=== PATIENT | female | born 1945 | race Two or more races ===

== ENCOUNTER 2020-06-24 07:20 | Emergency (ER) | payer OTHER ==
[~2020-06-24] VITALS: Ht 154.9 cm; Wt 68.0 kg
[2020-06-24] MEDS ORDERED: LANTUS SOL100 UNIT/1 SQ (07:31)
[2020-06-24] MEDS ORDERED: CARAFATE1 GM PO (22:02)
[2020-06-24] MEDS ORDERED: PEPCID AC20 MG PO (22:02)
[2020-06-24] MEDS ORDERED: ZOFRAN4 MG PO (22:03)
== END 2020-06-24 21:54 | disposition home or self-care (01) ==
LOC: ER 07:20
DX: K29.60 Other gastritis without bleeding (principal); K29.80 Duodenitis without bleeding; Z03.818 Encounter for observation for suspected exposure to other biological agents ruled out

== ENCOUNTER 2024-04-05 22:27 | Emergency (ER) | payer OTHER ==
[~2024-04-05] VITALS: Ht 162.6 cm; Wt 90.7 kg
[~2024-04-05 22:27] MED LIST: CARAFATE1 GM PO; LANTUS SOL100 UNIT/1 SQ; PEPCID AC20 MG PO; ZOFRAN4 MG PO
[2024-04-05] MEDS ORDERED: DEXTROSE 50 % IN WATER 0.5 G/ML DISP.SYRIN IV PRN (22:45)
[2024-04-05] MEDS ORDERED: DEXTROSE 50 % IN WATER 0.5 G/ML VIAL IV ONE (22:45)
[2024-04-05] MEDS ORDERED: DEXTROSE 5 % IN WATER 1,000 ML IV SCH (22:45)
[2024-04-05] MEDS ORDERED: INSULIN LISPRO 1,000 UNIT/10 ML UNITS SUBCUTANEO PRN (22:45)
[2024-04-05 23:19] LABS: MEAN CELL VOLUME 90.3 fL (80.00-100.00); MEAN CORPUSCULAR HEMOGLOBIN 29.5 pg (27.00-32.0); MEAN CORPUSCULAR HGB CONC 32.7 g/dl (32.0-36.0); PLATELET COUNT 259 K/uL (150-450); RED BLOOD COUNT 3.32 M/uL (4.00-6.00); RED CELL DISTRIBUTION WIDTH 13.6 % (11.5-14.5)
[2024-04-05 23:23] LABS: HEMOGLOBIN 9.8 g/dL (12.0-15.00)
[2024-04-06 00:40] LABS: PARTIAL THROMBOPLASTIN TIME 29.2 SECONDS (22.0-34.0); PROTHROMBIN TIME 10.9 SECONDS (9.0-11.5)
[2024-04-06 00:41] LABS: BILIRUBIN TOTAL 1.15 mg/dL (0.3-1.2); CALCIUM 9.1 mg/dL (8.5-10.1); CREATININE SERUM 1.13 mg/dL (0.55-1.02); GFR 46.33; GLOBULINA 4.4 G/DL (2.4-3.5); POTASSIUM 4.48 mEq/L (3.5-5.1); TOTAL PROTEIN 7.4 gm/dL (6.4-8.2)
[2024-04-06 01:55] LABS: PH,URINE 5.5 (5.0-8.0); URINE APPEARANCE Clear; URINE BILIRRUBIN Negative (NEGATIVE); URINE BLOOD Negative; URINE COLOR Dark Yellow; URINE KETONE 15 (NEGATIVE); URINE LEUKOCYTE Trace; URINE NITRATE Negative
[2024-04-06 01:58] LABS: URINE BACTERIA 1528.2 uL (0.0-1933); URINE EPITHELIAL CELLS 26.5 uL (0.0-38.8); URINE RBC 24.1 uL (0.0-20.8); URINE WBC 23.6 uL (0.0-23.2)
[2024-04-06 02:29] LABS: URINE CAST 1.22 uL (0.0-1.40); URINE GLUCOSE 100 MG/DL (NEGATIVE); URINE PROTEIN 300 (NEGATIVE)
== END 2024-04-06 06:20 ==
LOC: ER 22:27
PROVIDERS: General Practice
DX: E16.2 Hypoglycemia, unspecified (principal); R53.1 Weakness; R06.02 Shortness of breath; Z20.822 Contact with and (suspected) exposure to COVID-19; E11.9 Type 2 diabetes mellitus without complications; Z79.4 Long term (current) use of insulin
CPT/HCPCS: 36415; 71045; 93005; 96365; 96366; 99283; J3490 ×3

== ENCOUNTER 2024-11-05 03:00 | Emergency (ER) | payer OTHER ==
[~2024-11-05] VITALS: Ht 157.5 cm; Wt 72.6 kg
[2024-11-05] MEDS ORDERED: FAMOTIDINE/PF 20 MG in 0.9 % SODIUM CHLORIDE 8 ML IV PUSH STA (03:12)
[2024-11-05] MEDS ORDERED: FAMOTIDINE/PF 20 MG/2 ML VIAL ONE (03:13)
[2024-11-05] MEDS ORDERED: METOCLOPRAMIDE HCL 5 MG/ML VIAL ONE (03:13)
[2024-11-05] MEDS ORDERED: 0.9 % SODIUM CHLORIDE 1,000 ML IV SCH (03:15)
[2024-11-05] MEDS ORDERED: METOCLOPRAMIDE HCL 10 MG in DEXTROSE 5 % IN WATER 50 ML IV ONE (03:15)
[2024-11-05] MEDS ORDERED: NEURONTIN300 MG PO (03:18)
[2024-11-05] MEDS ORDERED: LIPITOR40 M1 PO (03:18)
[2024-11-05] MEDS ORDERED: LOSARTAN POTASS50 MG PO (03:18)
[2024-11-05] MEDS ORDERED: PEPCID AC20 MG PO (03:18)
[2024-11-05] MEDS ORDERED: NIFE60TA3 (03:19)
[2024-11-05 04:26] LABS: ALBUMIN 3.4 gm/dL (3.4-5.0); BILIRUBIN TOTAL 0.65 mg/dL (0.3-1.2); BILIRUBIN,CONJUGATED 0.2 mg/dL (0.0-0.2); BILIRUBIN,UNCONJUGATED 0.45 mg/dL (0.0-0.6); CALCIUM 9.4 mg/dL (8.5-10.1); CREATININE SERUM 2.14 mg/dL (0.55-1.02); GFR 22.17; GLOBULINA 4.2 G/DL (2.4-3.5); POTASSIUM 4.21 mEq/L (3.5-5.1); TOTAL PROTEIN 7.6 gm/dL (6.4-8.2)
[2024-11-05 06:21] LABS: HEMATOCRIT 40.7 % (36.0-45.00); HEMOGLOBIN 13.4 g/dL (12.0-15.00); PLATELET COUNT 270 K/uL (150-450); RED BLOOD COUNT 4.62 M/uL (4.00-6.00); RED CELL DISTRIBUTION WIDTH 12.9 % (11.5-14.5)
[2024-11-05 08:32] LABS: CALCIUM 8.7 mg/dL (8.5-10.1); CREATININE SERUM 1.91 mg/dL (0.55-1.02); GFR 25.28; POTASSIUM 4.37 mEq/L (3.5-5.1)
== END 2024-11-05 13:46 | disposition home or self-care (01) ==
LOC: ER 03:00
PROVIDERS: General Practice
DX: R11.2 Nausea with vomiting, unspecified (principal); K52.89 Other specified noninfective gastroenteritis and colitis; R10.9 Unspecified abdominal pain; I10 Essential (primary) hypertension; E11.9 Type 2 diabetes mellitus without complications; Z79.4 Long term (current) use of insulin
CPT/HCPCS: 36415; 96365; 96366; 99282; J2765; J3490; J7030